=== PATIENT | female | born 1945 | race Caucasian/White ===

== ENCOUNTER → 2019-07-12 07:46 | Outpatient (CLI) | payer OTHER, SELFPAY ==
--- NOTE | 2019-07-12 | DI.ECHO.S_ITS ---
[facility] +---------+ : : [address] : [address] : : : : [id number] : : : : Phone: [phone]---------+ Echocardiogram Report + + :Name: AMELIA GAMEZ Study Date: 07/12/2019 Height: 66 in : :[facility] Weight: 230 lb : : Gender: Female BSA: 2.1 m2 : :: 1945 Age: 74 yrs BP: 166/86 mmHg: :Reason For Study: Bradycardia : : Performed By: Courtney Ramirez : :Referring: MAMIE JUNIOR L : + + Interpretation Summary Left ventricular wall thickness is mildly increased. The left ventricular ejection fraction is normal. There are no obvious focal wall motion abnormalities noted but poor endocardial definition reduces the sensitivity for the detection of such. Diastolic parameters suggest a relaxation abnormality of the left ventricle, consistent with probable normal filling pressures. The right ventricle grossly appears normal in size with probable normal systolic function. The right ventricular systolic pressure is estimated to be at least 35 mmHg based on an estimated right atrial pressure of 3 mm Hg. The left atrium is severely dilated. -No significant structural abnormality except for mild increased left ventricular wall thickness. The data regarding filling pressures is contradictory. Dilated left atrium suggests elevated filling pressures at least at some point. The mitral twan inflow pattern suggests grade 1 diastolic dysfunction and normal filling pressures at the time of the study. Procedure: A two-dimensional transthoracic echocardiogram with color flow and Doppler was performed. The study quality was technically good. There is no prior echocardiogram noted for this patient. The patient was in normal sinus rhythm during the exam. Left Ventricle: The left ventricle is normal in size. Left ventricular wall thickness is mildly increased. The ejection fraction is estimated to be 50- 55%. The left ventricular ejection fraction is normal. There are no obvious focal wall motion abnormalities noted but poor endocardial definition reduces the sensitivity for the detection of such. Diastolic parameters suggest a relaxation abnormality of the left ventricle, consistent with probable normal filling pressures. Right Ventricle: The right ventricle grossly appears normal in size with probable normal systolic function. Atria: The left atrium is severely dilated. Right atrial size is normal. There is no Doppler evidence for an interatrial shunt. Mitral Valve: The mitral valve is normal in structure and function. There is trace mitral regurgitation. Aortic Valve: The aortic valve is trileaflet. The aortic valve opens well. There is trace aortic regurgitation. Tricuspid Valve: The tricuspid valve is normal in structure and function. There is trace tricuspid regurgitation. The right ventricular systolic pressure is estimated to be at least 35 mmHg based on an estimated right atrial pressure of 3 mm Hg. Pulmonic Valve: The pulmonic valve is not well seen, but is grossly normal. There is trace pulmonic regurgitation. Great Vessels: The aortic root is normal size. The ascending aorta is mildly enlarged. The aortic arch is mild-moderately enlarged. The IVC is of normal diameter and collapses greater than 50% with a sniff. This suggests a low right atrial pressure of 3 mm Hg. Pericardium/ Pleura There is no pericardial effusion. There is no pleural effusion. MMode/2D Measurements & Calculations LVIDd: 5.5 cm Ao root diam: 3.3 cm LVIDs: 3.5 cm Aortic Jxn: 2.7 cm FS: 35.5 % asc Aorta Diam: 3.8 cm EPSS: 0.81 cm Ao Arch Diam (Prox Trans): 3.6 cm IVSd: 1.1 cm LVPWd: 0.94 cm LV marrero. diameter/BSA (cm/m^2): 2.6 LV sys. diameter/BSA (cm/m^2): 1.7 LA dimension: 4.4 cm RA long axis: 4.9 cm LA A2 area: 28.9 cm2 RA area: 14.9 cm2 LA A4 area: 27.1 cm2 RA vol: 38.1 ml LA length (vol): 5.9 cm RA : 17.9 ml/m2 LA vol: 112.9 ml IVC diam: 1.9 cm LA vol index: 53.2 ml/m2 RVDd major: 5.9 cm RVD1 (basal): 3.5 cm RVD2 (mid): 3.1 cm Doppler Measurements & Calculations Ao V2 max: 142.0 cm/sec MV E max jarrett: 54.6 cm/sec Ao V2 mean: 94.9 cm/sec MV A max jarrett: 108.9 cm/sec Ao max P.1 mmHg MV E/A: 0.50 Ao mean P.3 mmHg Med Peak E' Jarrett: 3.6 cm/sec Ao V2 VTI: 40.0 cm E/E' med: 15.2 Lat Peak E' Jarrett: 3.4 cm/sec E/E' lat: 16.2 E/e' average: 15.7 MV dec time: 0.36 sec MV P1/2t: 103.6 msec TR max jarrett: 282.2 cm/sec MV P1/2t max jarrett: 54.2 cm/sec TR max P.9 mmHg MVA(P1/2t): 2.1 cm2 PA V2 max: 99.1 cm/sec PA V2 mean: 66.5 cm/sec PA mean P.0 mmHg PA Accel Time: 0.17 sec Electronically signed by: Desmond Murillo M.D. on Reading Physician:07/12/2019 10:02 AM
[2019-07-12 10:23] LABS: Add Manual Diff / Slide Review NO; Basophils Absolute Auto 100 /uL (0-100); Basophils Percent Auto 1.3 % (0-2); Eosinophils Absolute Auto 400 /uL (0-450); Hematocrit 41.2 % (36-46); Hemoglobin 14.1 g/dL (12.0-16.0); Lymphocytes Absolute Auto 1400 /uL (1100-4500); Lymphocytes Percent Auto 24.3 % (25-40); Mean Corpuscular HGB Conc 34.2 % (30-36); Mean Corpuscular Hemoglobin 33.8 PG (26-34); Mean Corpuscular Volume 98.8 fL (80-100); Monocytes Absolute Auto 600 /uL (0-900); Monocytes Percent Auto 9.6 % (3-14); Neutrophils Absolute Auto 3400 /uL (1500-7000); Neutrophils Percent Auto 57.8 % (50-75); Platelet Count 204 X10^3/uL (150-400); Red Blood Cell Count 4.17 X10^6/uL (4.0-5.2); Red Cell Distribution Width 12.5 % (11.6-14.8); White Blood Cell Count 5.9 X10^3/uL (4.5-11.0)
[2019-07-12 10:42] LABS: Appearance Urine UA SL CLOUDY; Bilirubin Urine UA NEGATIVE (NEGATIVE); Color Urine UA YELLOW; Glucose Urine UA NEGATIVE (Negative); Ketones Urine UA NEGATIVE (NEGATIVE); Leukocyte Esterase Urine UA 1+ (NEGATIVE); Nitrite Urine UA POSITIVE (Negative); Occult Blood Urine UA 2+ (Negative); Protein Urine UA TRACE (Negative); Urobilinogen Urine UA 0.2 E.U./dL (0.2)
[2019-07-12 10:47] LABS: B Type Natriuretic Peptide 238 (<100)
[2019-07-12 10:52] LABS: Bacteria Urine Many (>30); RBC Urine 10-30/HPF (0-5/HPF); WBC Urine 10-30/HPF (0-5/HPF)
[2019-07-12 11:11] LABS: BUN Creatinine Ratio 26.7 (6-22); Blood Urea Nitrogen 24 mg/dL (7-17); Calcium 9.5 mg/dL (8.4-10.2); Carbon Dioxide 30 mmol/L (22-32); Chloride 102 mmol/L (98-107); Estimated Glomerular Filt Rate > 60.0 mL/min (>60); Glucose 91 mg/dL (80-110); HEMOLYSIS < 15 (0-50); Potassium 4.6 mmol/L (3.4-5.1); Sodium 140 mmol/L (137-145)
[2019-07-12 11:35] LABS: Thyroid Stimulating Hormone 1.53 uIU/mL (0.47-4.68)
[2019-07-15 06:09] LABS: Renin Activity 0.31 ng/mL/h (0.25-5.82)
== END ==
PROVIDERS: PCP Internal Medicine; Visit Provider Internal Medicine
DX: R00.1 Bradycardia, unspecified (principal); I10 Essential (primary) hypertension; I77.89 Other specified disorders of arteries and arterioles
CPT/HCPCS: 36415; 80048; 81001; 82088; 83880; 84244; 84443; 85025; 93306

== ENCOUNTER → 2019-08-04 07:27 | Outpatient (CLI) | payer OTHER, SELFPAY | PROVIDERS: PCP Internal Medicine; Visit Provider Internal Medicine | DX: I10 Essential (primary) hypertension (principal); R00.1 Bradycardia, unspecified | CPT/HCPCS: 82088 ==